=== PATIENT | female | born 1970 | race Caucasian/White ===

== ENCOUNTER 2020-05-05 09:59 | Emergency (ER) | payer OTHER ==
[~2020-05-05] VITALS: Ht 157.5 cm; Wt 76.0 kg
[2020-05-05 11:24] VITALS: BP 167/70
[2020-05-05] MEDS ORDERED: KETOROLAC 30MG/ML VIAL IV STA (11:24)
[2020-05-05] MEDS ORDERED: SODIUM CHLORIDE 0.9% 1,000 ML IV ONE (11:30)
[2020-05-05 12:23] LABS: BASOPHILS % 0.7 % (0.0-2.0); EOSINOPHILS % 1.3 % (0.0-5.0); HEMOGLOBIN. 11.6 g/dL (12.0-16.0); LYMPHOCYTES % 29.9 % (20.0-50.0); MEAN CORPUSCULAR HEMOGLOBIN 27.7 pg (28.0-32.0); MEAN CORPUSCULAR VOLUME 83.4 fL (81.0-99.0); MEAN PLATELET VOLUME 10.4 fl (7.4-10.4); MONOCYTES % 4.3 % (2.0-8.0); NEUTROPHILS % 63.8 % (40.0-76.0); PLATELET 306 x1000/uL (130-400); RED CELL DISTRIBUTION WIDTH 15.4 % (11.6-14.6)
[2020-05-05 12:33] LABS: CHLORIDE 108 mEq/L (98-107)
[2020-05-05 13:27] LABS: CLARITY URINE CLEAR (CLEAR); COLOR URINE YELLOW (YELLOW); KETONES URINE NEGATIVE (NEGATIVE); LEUKOCYTE ESTERASE URINE NEGATIVE (NEGATIVE); NITRITE URINE NEGATIVE (NEGATIVE); OCCULT BLOOD URINE NEGATIVE (NEGATIVE); PH URINE 5.5 (4.5-8.0); PROTEIN URINE NEGATIVE (NEGATIVE); SPECIFIC GRAVITY URINE 1.015 (1.005-1.030); UROBILINOGEN URINE 0.2 E.U./dL (0.2-1.0)
[2020-05-05] MEDS ORDERED: VISCOUS LIDOCAINE 2% 15 ML UDC MM STA (14:16)
[2020-05-05] MEDS ORDERED: MAGNESIUM/ALUMINUM HYDROXIDE/SIMETHICONE 30ML UDC PO ONE (14:30)
[2020-05-05 15:28] LABS: PROTHROMBIN TIME 10.8 sec (9.6-11.0)
[2020-05-05] MEDS ORDERED: ACETAMINOPHEN 500MG TABLET PO ONE (19:00)
[2020-05-05] MEDS ORDERED: IOHEXOL-300 100 ML BOTTLE ONE (21:02)
== END 2020-05-05 19:30 | disposition home or self-care (01) ==
LOC: ER 10:19
DX: K82.4 Cholesterolosis of gallbladder (principal)
CPT/HCPCS: 36415; 71045; 74177; 76705; 80053; 81003; 83690; 85025; 85610; 93005; 96361; 96374; 99285; J1885; J7030; Q9967

== ENCOUNTER 2020-06-04 00:10 | Emergency (ER) | payer OTHER, MEDICAID ==
[~2020-06-04] VITALS: Ht 157.5 cm; Wt 73.0 kg
[2020-06-04] MEDS ORDERED: KETOROLAC 30MG/ML VIAL IM ONE (01:30)
[2020-06-04 05:01] LABS: CLARITY URINE CLEAR (CLEAR); COLOR URINE YELLOW (YELLOW); KETONES URINE NEGATIVE (NEGATIVE); LEUKOCYTE ESTERASE URINE NEGATIVE (NEGATIVE); NITRITE URINE NEGATIVE (NEGATIVE); OCCULT BLOOD URINE NEGATIVE (NEGATIVE); PROTEIN URINE NEGATIVE (NEGATIVE); SPECIFIC GRAVITY URINE 1.009 (1.005-1.030); UROBILINOGEN URINE 0.2 E.U./dL (0.2-1.0)
[2020-06-04] MEDS ORDERED: HYDROCODONE/ACETAMINOPHEN 5/325MG TABLET PO STA (05:07)
[2020-06-04 08:17] LABS: BASOPHILS % 0.8 % (0.0-2.0); EOSINOPHILS % 1.2 % (0.0-5.0); HEMATOCRIT. 32.9 % (36.0-48.0); LYMPHOCYTES % 22.1 % (20.0-50.0); MEAN CORPUSCULAR HEMOGLOBIN 27.6 pg (28.0-32.0); MEAN CORPUSCULAR VOLUME 82.6 fL (81.0-99.0); MEAN PLATELET VOLUME 9.5 fl (7.4-10.4); MONOCYTES % 5.2 % (2.0-8.0); NEUTROPHILS % 70.7 % (40.0-76.0); PLATELET 257 x1000/uL (130-400); RED BLOOD CELL COUNT 3.99 mill/uL (4.2-5.4); RED CELL DISTRIBUTION WIDTH 15.7 % (11.6-14.6)
[2020-06-04 08:23] LABS: CHLORIDE 105 mEq/L (98-107)
[2020-06-04 08:41] VITALS: BP 139/65
[2020-06-04] MEDS ORDERED: IOHEXOL-350 100 ML BOTTLE ONE (11:14)
== END 2020-06-04 11:12 | disposition home or self-care (01) ==
LOC: ER 00:22
DX: M54.5 Low back pain (principal); R07.89 Other chest pain
CPT/HCPCS: 36415; 71275; 74176; 80053; 81003; 83690; 85025; 96372; 99285; J1885; Q9967

== ENCOUNTER 2020-12-07 15:00 | Emergency (ER) | payer MEDICAID, OTHER ==
[~2020-12-07] VITALS: Ht 157.5 cm; Wt 75.0 kg
[2020-12-07] MEDS ORDERED: KETOROLAC 60MG/2ML VIAL IM STA (16:32)
[2020-12-07 16:53] LABS: CLARITY URINE CLEAR (CLEAR); COLOR URINE YELLOW (YELLOW); KETONES URINE NEGATIVE (NEGATIVE); LEUKOCYTE ESTERASE URINE NEGATIVE (NEGATIVE); NITRITE URINE NEGATIVE (NEGATIVE); OCCULT BLOOD URINE NEGATIVE (NEGATIVE); PH URINE 5.5 (4.5-8.0); PROTEIN URINE NEGATIVE (NEGATIVE); SPECIFIC GRAVITY URINE 1.013 (1.005-1.030); UROBILINOGEN URINE 0.2 E.U./dL (0.2-1.0)
[2020-12-07] MEDS ORDERED: CYCLOBENZAPRINE 10MG TABLET PO ONE (17:15)
[2020-12-07] MEDS ORDERED: ACETAMINOPHEN 325MG TABLET PO STA (18:55)
[2020-12-07] MEDS ORDERED: DICL100G16 TP ×3 (19:09→19:54)
[2020-12-07] MEDS ORDERED: GABA-532 PO (19:09)
[2020-12-07] MEDS ORDERED: NAPR-681 PO ×3 (19:09→19:54)
[2020-12-07] MEDS ORDERED: TRAMADOL 50MG TABLET PO STA (19:39)
[2020-12-07 20:40] VITALS: BP 148/82
== END 2020-12-07 20:52 | disposition home or self-care (01) ==
LOC: ER 15:00
DX: M25.512 Pain in left shoulder (principal); E04.1 Nontoxic single thyroid nodule; M75.02 Adhesive capsulitis of left shoulder
CPT/HCPCS: 72125; 73030; 81003; 81025; 93005; 96372; 99285; J1885